=== PATIENT | male | born 1975 | race Caucasian/White ===

== ENCOUNTER 2017-12-14 10:02 | Emergency (ER) | payer OTHER ==
[~2017-12-14] VITALS: Ht 175.3 cm; Wt 103.9 kg
[~2017-12-14 10:02] MED LIST: FLEXERIL10 MG PO; MOTRIN800 MG PO
[2017-12-14] MEDS ORDERED: BYSTOLIC5 M1 PO (12:00)
[2017-12-14] MEDS ORDERED: TESTOSTERO200 MG/1 M IM (12:01)
--- NOTE | 2017-12-14 12:05 | RADIOLOGY REPORT ---
EXAMINATION: XR SHOULDER, RIGHT CLINICAL INFORMATION: Injured right shoulder at work COMPARISON: None TECHNIQUE: Three views of the right shoulder. FINDINGS: Visualized portion of the proximal right humerus demonstrate no fracture. Humeral head demonstrates good articulation with the glenoid fossa. Glenohumeral joint is well-maintained. Mild degenerative changes of the acromioclavicular joint are present. IMPRESSION: Mild degenerative changes of the right shoulder without fracture or dislocation.
--- NOTE | 2017-12-14 12:46 | ED GENERAL ADULT ---
History of Present Illness General Chief Complaint: Upper Extremity Injury Stated Complaint: R SHOULDER PAIN, WORK RELATED INJURY Source: patient Exam Limitations: no limitations Vital Signs & Intake/Output Vital Signs & Intake/Output Vital Signs Date Time Temp Pulse Resp B/P B/P Pulse O2 O2 Flow FiO2 Mean Ox Delivery Rate 12/14 1009 97.0 74 20 127/76 98 Room Air Allergies Coded Allergies: NO KNOWN ALLERGIES (12/14/17) Reconcile Medications Nebivolol HCl (Bystolic) 5 MG TABLET 1 TAB PO DAILY HEART (Reported) Testosterone Cypionate 200 MG/ML VIAL 0.25 ML IM QW UNKNOWN (Reported) Triage Note: PT TO ED C/O RIGHT SHOULDER PAIN S/P PULLING A HEAVY BARREL WHILE AT WORK. "I HEARD A POP". WORKERS COMP FORM FILED. MEDICATED WITH MOTRIN. WORKERS COMP FORM FILED. MEDICATED WITH MOTRIN. Triage Nurses Notes Reviewed? 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 An x-ray was ordered in triage, and upon my initial encounter the patient shows no sign of acute distress, but does have flattening and decreased tone of the right biceps as compared to the left biceps. Denies any other trauma or complaint whatsoever. Past History Travel History Traveled to [place] past 21 day No Medical History Any Pertinent Medical History? none Neurological: NONE EENT: NONE Cardiovascular: hypertension Respiratory: NONE Gastrointestinal: NONE Hepatic: NONE Renal: NONE Musculoskeletal: NONE Psychiatric: NONE Endocrine: NONE Blood Disorders: NONE Cancer(s): NONE HAND RIVETER/Reproductive: NONE Surgical History Surgical History: left rotator cuff surgery Psychosocial History What is your primary language Venezuelan Tobacco Use: Quit >30 days ago ETOH Use: denies use Illicit Drug Use: denies illicit drug use Family History Hx Contributory? No Review of Systems Review of Systems Constitutional: Reports: see HPI. Respiratory: Reports: no symptoms. Cardiovascular: Reports: no symptoms. Musculoskeletal: Reports: see HPI, joint pain, muscle pain. Skin: Denies: erythema, lesions, rash. Neurological/Psychological: Denies: numbness, paresthesia. Physical Exam Physical Exam General Appearance: well developed/nourished, no apparent distress, alert, awake , comfortable Comments: HEENT: Inspection of the head reveals a normocephalic cranium with no signs of trauma. Ophtho: Extraocular muscles are intact. The sclera are noninjected, and there is no obvious discharge. Neck: No signs of trauma or asymmetry to the neck. Respiratory: The patient exhibits no signs of labored breathing. Cardiac: Non-tachycardic. GI: No gross abdominal distention. : Deferred Extremities: Focused examination of the right upper extremity reveals decreased tone of the right bicep and decreased ability in flexion of the right upper extremity. There is pain over the biceps tendon sheath, consistent with partial or full biceps tendon rupture. Neuro: The patient is oriented to person, place, time, and situation, with no obvious focal motor deficits. Cranial nerves II through XII are intact, and gait is normal. Behavioral: Calm and cooperative Dermatologic: Dermatologic examination reveals no obvious rashes or exanthems. Core Measures ACS in differential dx? No CVA/TIA Diagnosis: No Sepsis Present: No Sepsis Focused Exam Completed? No Progress Differential Diagnoses I considered the following diagnoses in my evaluation of the patient: Partial biceps tendon rupture, full biceps tendon rupture, shoulder fracture, humerus fracture, shoulder bursitis, sprain Plan of Care: X-ray of the shoulder joint was negative for fracture. Clinically, I feel the patient has a partial or full biceps tendon rupture. He declined my offer for a sling, and agrees to follow-up with orthopedics in the office. No other trauma. Workmen's Compensation paperwork provided, stable at time of discharge. Radiology Impression: no acute abnormality, no fracture, no dislocation Initial ED EKG: none Departure Departure Time of Disposition: 1245 Disposition: HOME OR SELF CARE Condition: Stable Clinical Impression Primary Impression: Biceps tendon rupture, proximal Qualifiers: Encounter type: initial encounter Laterality: right Qualified Code: S46.211A - Strain of muscle, fascia and tendon of other parts of biceps, right arm, initial encounter Referrals: Angle BANSAL,Andrew Almazan Additional Instructions: You likely suffered a rupture of your biceps tendon. Please call the attached number for an appointment with our park services specialist for further evaluation and recommendations. Your Workmen's Compensation paperwork is attached in this packet as well. Please follow-up with the providers as recommended by your supervisors as well. Use Tylenol and Motrin for pain. Departure Forms: Customer Survey General Discharge Information Industrial Accident Report Critical Care Note Critical Care Note Critical Care Time: non-applicable
[2017-12-14 12:50] VITALS: BP 128/83
== END 2017-12-14 13:04 ==
LOC: ERH 10:02
DX: S46.211A Strain of muscle, fascia and tendon of other parts of biceps, right arm, initial encounter (principal); X50.9XXA Other and unspecified overexertion or strenuous movements or postures, initial encounter; Y93.89 Activity, other specified
CPT/HCPCS: 73030-RT